=== PATIENT | male | born 1955 | race Two or more races ===

== ENCOUNTER 2017-06-17 11:58 | Day surgery (SDC) | payer OTHER ==
[~2017-06-17] VITALS: Ht 180.3 cm; Wt 107.3 kg
[~2017-06-17 11:58] MED LIST: AMLODIPINE PO; ASPI-664 PO; DILTIAZEM PO; HYDROCHLOROTHIAZIDE PO
[2017-06-17] MEDS ORDERED: SIMV5TAB50 PO (13:00)
[2017-06-17] MEDS ORDERED: OMEP40CA6 PO (13:00)
[2017-06-17 13:18] VITALS: BP 120/79; PULSE 77; RESP 20; Ht 180.3 cm; Wt 107.3 kg
[2017-06-17] MEDS ORDERED: MIDAZOLAM 1 MG/ML 2 ML INJ ONE (13:19)
[2017-06-17] MEDS ORDERED: LIDOCAINE 2% (SDV) 5 ML INJ ONE (13:19)
[2017-06-17] MEDS ORDERED: PROPOFOL 20 ML ONE (13:19)
--- NOTE | 2017-06-17 13:36 | OPPN ---
Date/Time of Note Date/Time of Note DATE: 06/17/17 TIME: 13:34 Operative Report Preoperative Diagnosis Abdominal pain Postoperative Diagnosis Gastritis with erosions Operation/Procedure Performed Esophagogastroduodenoscopy and biopsy Provider: ESTELLE MARAVILLA MD Anesthesia Type: MAC Estimated blood loss: none Transfusion Required: no Specimens Gastric mucosal biopsy Grafts/Implants: none Complications: no ESTELLE MARAVILLA MD Jun 17, 2017 13:36
[2017-06-17 13:40] VITALS: BP 145/98; PULSE 88; RESP 14
--- NOTE | 2017-06-17 20:15 | GILP ---
DATE OF PROCEDURE: 06/17/2017 NAME OF PROCEDURE: Esophagogastroduodenoscopy and biopsy. SURGEON: Yanelis Mcknight MD PREOPERATIVE DIAGNOSIS: Abdominal pain. POSTOPERATIVE DIAGNOSES: 1. Gastritis with erosions. 2. Gastric mucosal biopsies were taken for Helicobacter pylori test. INDICATIONS FOR PROCEDURE: The patient is a 62-year-old male patient who had upper abdominal pain not responding to therapy. The patient was scheduled for endoscopic examination for further evaluation. The procedure and possible complications were well explained to the patient. He understood and consented to the procedure. DESCRIPTION OF PROCEDURE: Under influence of anesthesia, the gastroscope was carefully introduced into the esophagus. Under direct vision, it was advanced to the stomach, into the pylorus, into the duodenal bulb, and descending duodenum. FINDINGS: Esophagus, mucosa was normal. Stomach, the patient had gastritis with erosions. Gastric mucosal biopsies were taken for Helicobacter pylori test. Duodenum was normal. The patient tolerated the procedure very well, and there was no complication from the procedure. At the end of procedure, he was awake with stable vital signs and he was discharged home in the care of his family. IMPRESSION: 1. Gastritis with erosions. 2. Gastric mucosal biopsies were taken for Helicobacter pylori test. PLAN: 1. Continue omeprazole. 2. Add Zantac 300 mg p.o. at bedtime. 3. Await Helicobacter pylori test report. Dictated By: MD DILSHAD [email or web address] /Document#: [id number]
== END 2017-06-17 14:47 | disposition home or self-care (01) ==
LOC: GIL 11:58
PROVIDERS: ATTEND Internal Medicine Gastroenterology
DX: B96.81 Helicobacter pylori [H. pylori] as the cause of diseases classified elsewhere (principal); K29.60 Other gastritis without bleeding; I10 Essential (primary) hypertension
CPT/HCPCS: 43239; 87081; J2250; Z7610